=== PATIENT | female | born 1970 | race Two or more races ===

== ENCOUNTER 2016-06-26 19:27 | Emergency (ER) | payer MEDICAID, OTHER ==
[~2016-06-26] VITALS: Ht 167.6 cm; Wt 122.5 kg
[2016-06-27 05:52] VITALS: BP 149/63
== END 2016-06-27 08:29 | disposition home or self-care (01) ==
LOC: ER 19:31
DX: H60.92 Unspecified otitis externa, left ear (principal); R51 Headache; R22.1 Localized swelling, mass and lump, neck
CPT/HCPCS: 70450